=== PATIENT | female | born 1945 | race Caucasian/White ===

== ENCOUNTER 2016-10-02 08:48 | Outpatient (RCR) | payer MEDICARE, OTHER ==
[~2016-10-02 08:48] MED LIST: ASPIRIN 81M81 MG/TA2 PO; CALCIUM 600MG+D1 TAB PO; CEFTIN500 MG PO; COLACE 100100 MG/CAP PO; EPA FISH OIL1000 MG PO; ROXICODONE 55 MG/TAB PO; ZOCOR 20MG20 MG PO; ZOFRAN ODT4 MG PO
== END 2016-12-31 | disposition home or self-care (01) ==
LOC: WSST
DX: I69.391 Dysphagia following cerebral infarction (principal); R13.11 Dysphagia, oral phase; I69.392 Facial weakness following cerebral infarction
CPT/HCPCS: G8996-GN; G8997-GN; G8998-GN

== ENCOUNTER 2017-01-19 06:38 | Emergency (ER) | payer MEDICARE, OTHER ==
[~2017-01-19] VITALS: Ht 167.6 cm; Wt 84.5 kg
[2017-01-19 06:43] VITALS: TEMP 98.3
[2017-01-19 07:51] LABS: BASO % 1.3 % (0.0-2.0); EOS # 0.2 (0.0-0.7); EOS % 5.1 % (0-4.0); GRAN # 1.5 (1.4-6.5); GRAN % 47.6 % (42.2-75.2); HEMATOCRIT 39.2 % (37.0-47.0); HEMOGLOBIN 12.9 g/dl (12.5-16.0); LYMPH # 1.2 (1.2-3.4); MEAN CELL VOLUME 89 fl (80.0-100.0); MEAN CORPUSCULAR HEMOGLOBIN 29 pg (27.0-31.0); MEAN CORPUSCULAR HGB CONC 33 g/dl (33.0-37.0); MEAN PLATELET VOLUME 9.4 fl (7.4-10.4); MONO # 0.2 (0.1-0.6); MONO % 6.7 % (1.7-9.3); PLATELET COUNT 190 K/mm3 (130-400); RED BLOOD COUNT 4.42 M/mm3 (4.10-5.30); REDCELL DISTRIBUTION WIDTH-CV 12.8 % (11.5-14.5); WHITE BLOOD COUNT 3.1 K/mm3 (4.8-10.8)
[2017-01-19 08:08] LABS: INR 1.1 (0.8-3.0); PROTHROMBIN TIME 11.7 SECONDS (9.7-12.8)
[2017-01-19 08:11] LABS: PARTIAL THROMBOPLASTIN TIME 31.7 SECONDS (26.0-37.0)
[2017-01-19 08:16] LABS: ADJUSTED CALCIUM 9.4 mg/dL (8.4-10.2); ALBUMIN 3.8 gm/dL (3.5-5.0); BILIRUBIN,TOTAL 1.1 mg/dL (0.0-1.0); CALCIUM 9.2 mg/dL (8.4-10.2); CREATININE, serum 0.71 mg/dL (0.52-1.25); TOTAL PROTEIN 6.7 gm/dL (6.4-8.2)
[2017-01-19] MEDS ORDERED: TAMOXIFEN CITRA20 MG PO (08:17)
[2017-01-19] MEDS ORDERED: VESICARE10 MG PO (08:17)
[2017-01-19 08:38] VITALS: BP 155/88; PULSE 80
[2017-01-19] MEDS ORDERED: ASPIRIN 32325 MG/TAB PO (08:39)
== END 2017-01-19 08:40 | disposition home or self-care (01) ==
LOC: COL.ER 06:38
PROVIDERS: Physician Assistant
DX: R58 Hemorrhage, not elsewhere classified (principal); E78.5 Hyperlipidemia, unspecified; Z85.3 Personal history of malignant neoplasm of breast; Z92.3 Personal history of irradiation; Z79.82 Long term (current) use of aspirin; Z90.11 Acquired absence of right breast and nipple

== ENCOUNTER 2017-09-11 12:30 | Outpatient (RCR) | payer MEDICARE, OTHER ==
[~2017-09-11 12:30] MED LIST changes: +ASPIRIN 32325 MG/TAB PO; +TAMOXIFEN CITRA20 MG PO; +VESICARE10 MG PO
== END 2017-09-15 10:11 | disposition home or self-care (01) ==
LOC: WSPT 12:30
DX: I97.89 Other postprocedural complications and disorders of the circulatory system, not elsewhere classified (principal); Z98.890 Other specified postprocedural states; Z85.3 Personal history of malignant neoplasm of breast; Z92.3 Personal history of irradiation
CPT/HCPCS: G8984-GP; G8985-GP; G8986-GP

== ENCOUNTER → 2020-03-06 | Outpatient (CLI) | payer MEDICARE, OTHER | LOC: MC.RAD 10:29 | DX: N63.21 Unspecified lump in the left breast, upper outer quadrant (principal); Z85.3 Personal history of malignant neoplasm of breast; Z80.3 Family history of malignant neoplasm of breast; Z78.0 Asymptomatic menopausal state; Z92.3 Personal history of irradiation ==

== ENCOUNTER 2021-04-28 11:13 | Emergency (ER) | payer MEDICARE, OTHER ==
[~2021-04-28] VITALS: Ht 165.1 cm; Wt 77.3 kg
[2021-04-28 11:38] VITALS: TEMP 98.7
[2021-04-28 12:01] LABS: BASO % 0.9 % (0.0-2.0); EOS # 0.1 K/mm3 (0.0-0.7); EOS % 2.3 % (0-4.0); GRAN # 2.2 K/mm3 (1.4-6.5); GRAN % 50.7 % (42.2-75.2); HEMOGLOBIN 11.7 g/dl (12.5-16.0); LYMPH # 1.7 K/mm3 (1.2-3.4); LYMPH % 38.4 % (20.0-51.0); MEAN CELL VOLUME 88 fl (80.0-100.0); MEAN CORPUSCULAR HEMOGLOBIN 29 pg (27.0-31.0); MEAN CORPUSCULAR HGB CONC 33 g/dl (33.0-37.0); MEAN PLATELET VOLUME 9.7 fl (7.4-10.4); MONO # 0.3 K/mm3 (0.1-0.6); MONO % 7.7 % (1.7-9.3); PLATELET COUNT 211 K/mm3 (130-400); RED BLOOD COUNT 4.05 M/mm3 (4.10-5.30); REDCELL DISTRIBUTION WIDTH-CV 12.7 % (11.5-14.5)
[2021-04-28 12:04] LABS: HEMATOCRIT 35.7 % (37.0-47.0)
[2021-04-28 12:18] LABS: ALANINE AMINOTRANSFERASE 18 U/L (0-55); ALBUMIN 3.4 gm/dL (3.4-4.8); ALKALINE PHOSPHATASE 68 U/L (40-150); ANION GAP 10 mmol/L (7-16); AST,SGOT 22 U/L (5-34); BILIRUBIN,TOTAL 0.7 mg/dL (0.2-1.2); BLOOD UREA NITROGEN 18 mg/dL (10-20); CALCIUM 9.1 mg/dL (8.4-10.2); CARBON DIOXIDE 23 mmol/L (23-31); CHLORIDE 107 mmol/L (98-107); CREATINE KINASE 359 U/L (29-168); CREATININE, serum 0.77 mg/dL (0.57-1.11); GLUCOSE 95 mg/dL (70-99); LIPASE 21 U/L (8-78); POTASSIUM 4.4 mmol/L (3.5-4.5); SODIUM 140 mmol/L (136-145); TOTAL PROTEIN 6.6 gm/dL (6.2-8.1)
[2021-04-28 12:26] LABS: TROPONIN-I < 0.010 ng/mL (0.00-0.033)
[2021-04-28 14:35] VITALS: BP 136/82; PULSE 63
== END 2021-04-28 14:35 | disposition home or self-care (01) ==
LOC: COL.ER 11:13
PROVIDERS: Emergency Medicine
DX: R07.89 Other chest pain (principal); E78.00 Pure hypercholesterolemia, unspecified; Z79.899 Other long term (current) drug therapy

== ENCOUNTER 2023-08-07 14:55 | Outpatient (CLI) | payer MEDICARE, OTHER ==
[~2023-08-07] VITALS: Ht 165.1 cm; Wt 79.2 kg
[~2023-08-07 14:55] MED LIST changes: +CALCIUM/MAGNESI1 T17 PO; +CLARITIN 1010 MG/TAB PO; +MASON NATURAL2000 IU PO; +MIRALAX PA17 GM/Dose PO; +OMEGA-3 1000 MG1 CAP PO; +SANCTURA20 MG PO; +ZETIA 10MG TAB10 MG PO
[2023-08-07] MEDS ORDERED: Denosumab 60 MG/ML SYRINGE SQ ONE (15:00)
[2023-08-07 15:03] VITALS: BP 166/77; PULSE 82; TEMP 97.7
[2023-08-07] MEDS ORDERED: PROLIA60 MG/ML SQ (15:06)
--- NOTE | 2023-08-07 15:15 | NUR ---
Pt tolerated prolia without issue. She exits dept with steady gait. Free of complaints at discharge.
== END 2023-08-07 15:16 | disposition home or self-care (01) ==
LOC: EUO 14:55
DX: M81.0 Age-related osteoporosis without current pathological fracture (principal)
CPT/HCPCS: J0897